=== PATIENT | male | born 1970 | race Caucasian/White ===

== ENCOUNTER 2023-10-22 07:55 | Outpatient (CLI) | payer BC, SELFPAY | END 2023-10-22 07:56 | disposition home or self-care (01) | PROVIDERS: PCP Family Medicine; Visit Provider Otolaryngology | DX: H90.3 Sensorineural hearing loss, bilateral (principal); J01.00 Acute maxillary sinusitis, unspecified | CPT/HCPCS: 92557; 92567 ==

== ENCOUNTER 2024-04-14 01:09 | Day surgery (SDC) | payer BC, SELFPAY ==
[2024-03-27 15:02] VITALS: BMI 38.0
[2024-04-14 07:42] VITALS: BP 147/102; PULSE 71; RESP 18; TEMP 36.2; O2SAT 98
[2024-04-14] MEDS: LACTATED RINGERS 1,000 ML 150 ML IV CONT (07:50)
[2024-04-14 08:06] VITALS: BP 140/91
--- NOTE | 2024-04-14 08:15 | WPDANESEPPF ---
Anes - Initial Pre Proc Eval Procedure: Operation Date: 04/14/24 09:00 Proposed Procedures p Screening Colonoscopy - Darvin Mathews MD Date/Time: 04/14/24 08:15 Surgeon: Darvin Mathews MD Pre Op Diagnosis: neoplasm screening Patient Data Age: 53 Gender: M Height: 1.83 m Weight: 128 kg Last Vital Signs Temp 97.2 F L 04/14/24 07:42 Pulse 71 04/14/24 07:42 Resp 18 04/14/24 07:42 BP 140/91 H 04/14/24 08:06 Pulse Ox 98 04/14/24 07:42 O2 Del Method Room Air 04/14/24 07:42 Allergies Allergy/AdvReac Type Severity Reaction Status Date / Time No Known Allergies Allergy Verified 04/14/24 07:41 Home Medications Medication Instructions Recorded Confirmed Type carvedilol 12.5 mg tablet See Rx Instructions .Route 12/17/23 03/27/24 Rx .COMPLEX #180 tabs hydrochlorothiazide 50 mg tablet See Rx Instructions .Route 01/28/24 03/27/24 Rx .COMPLEX #90 tabs atorvastatin 20 mg tablet See Rx Instructions .Route 03/24/24 03/27/24 Rx .COMPLEX #90 tabs multivit with minerals-iron 18 1 tablet PO DAILY 03/27/24 03/27/24 History mg-folic ac 400 mcg-vit K 25 mcg tablet (Adults Multivitamin) Patient hx anesthesia problems: none Family hx anesthesia problems: none Results Review: All pre-operative results and documents have been reviewed as part of the pre-operative evaluation. [facility] Past Medical History Medical History (Updated 01/28/24 @ 15:44 by Andrew Hubbard MD) Elevated fasting glucose Encounter for screening for malignant neoplasm of prostate Hypertension Obesity Screening for colon cancer Screening for thyroid disorder URI (upper respiratory infection) Surgical History Surgical History No history of previous surgery Family History Family History Father Heart disease Mother Hypertension Social History Social History Social History: Caffeine-coffee/tea Smoking status: Never smoker Alcohol intake: current Drinks per week: 2 Alcohol use details: BEERS Substance use: never Substance use type: does not use Lack of Transportation: No Lack of Food: Never True Current Housing: I Have Housing Concerned About Future Housing: No Difficulty Paying Gas/Electric Bills: No Difficulty Paying for Meds: No Currently Unemployed: No Education: Don't Know Difficulty w/ Childcare or Family Care: No Living arrangements: with family Occupation/Education: occupation Spiritual care concerns: No Agree to blood products: Yes Anes - Eval Final PreProcedure Day of Procedure 04/14/24 08:15 Patient weight: obese Heart: regular rate and rhythm Lungs: clear to auscultation Airway: Mallampati scale class III Neurological: alert and oriented Last oral intake: >/= 8 hours ASA classification: III Emergent: no Anesthetic plan: proceed Anesthesia type and monitoring: general GIVS and standard monitoring Results Review: All pre-operative results and documents have been reviewed as part of the pre-operative evaluation. Informed Consent: The patient's anesthetic plan and its attendant risks and benefits were discussed with the patient/family/POA. Questions were solicited and answers provided to the satisfaction of the patient/family/POA.
--- NOTE | 2024-04-14 08:18 | SUR.PREOP ---
0800: DR MENDOZA MADE AWARE OF PT'S BLOOD PRESSURES, NO NEW ORDERS, DR SEEING PT AT BEDSIDE
--- NOTE | 2024-04-14 08:45 | PM.HPGS ---
History of Present Illness History of Present Illness Consent: Risks, benefits, and alternatives have been discussed and questions answered. Patient agrees to proceed with procedure. Chief complaint: neoplasm screening Narrative: Rei Muller is a 53 year old male here for first screening colonoscopy Review of Systems Review of Systems: All systems reviewed & are unremarkable except as noted in HPI and below PMFSH Past Medical History Medical History (Updated 01/28/24 @ 15:44 by Andrew Hubbard MD) Elevated fasting glucose Encounter for screening for malignant neoplasm of prostate Hypertension Obesity Screening for colon cancer Screening for thyroid disorder URI (upper respiratory infection) Surgical History Surgical History No history of previous surgery Family History Family History Father Heart disease Mother Hypertension Social History Social History Social History: Caffeine-coffee/tea Smoking status: Never smoker Alcohol intake: current Drinks per week: 2 Alcohol use details: BEERS Substance use: never Substance use type: does not use Lack of Transportation: No Lack of Food: Never True Current Housing: I Have Housing Concerned About Future Housing: No Difficulty Paying Gas/Electric Bills: No Difficulty Paying for Meds: No Currently Unemployed: No Education: Don't Know Difficulty w/ Childcare or Family Care: No Living arrangements: with family Occupation/Education: occupation Spiritual care concerns: No Agree to blood products: Yes Meds Home Medications and Allergies Home Medications Medication Instructions Recorded Confirmed Type carvedilol 12.5 mg tablet See Rx Instructions .Route 12/17/23 03/27/24 Rx .COMPLEX #180 tabs hydrochlorothiazide 50 mg tablet See Rx Instructions .Route 01/28/24 03/27/24 Rx .COMPLEX #90 tabs atorvastatin 20 mg tablet See Rx Instructions .Route 03/24/24 03/27/24 Rx .COMPLEX #90 tabs multivit with minerals-iron 18 1 tablet PO DAILY 03/27/24 03/27/24 History mg-folic ac 400 mcg-vit K 25 mcg tablet (Adults Multivitamin) Allergies Allergy/AdvReac Type Severity Reaction Status Date / Time No Known Allergies Allergy Verified 04/14/24 07:41 Vital Signs Vital Signs - 24 hr 04/14/24 07:42 04/14/24 08:06 Temperature 97.2 F L Pulse Rate 71 Respiratory Rate 18 Blood Pressure 147/102 H 140/91 H Pulse Oximetry 98 Oxygen Delivery Room Air Exam Const: General: comfortable and no acute distress HENMT: Face/Nose/Sinus: Normal nares present Eyes: General: appearance normal, both eyes and all related structures Neck: Neck: no JVD Resp: Auscultation: clear to auscultation bilaterally Cardio: Rate: regular rate Rhythm: regular rhythm GI: Inspection: non-distended GI Palp: Yes Soft to palpation Skin: General skin exam: normal color Neuro: General: gait normal Speech: normal speech Extrem: General: normal to inspection Psych: Mental Status: mental status grossly normal Assessment and Plan Assessment and plan (1) Screening for colon cancer: Code(s): Z12.11 - Encounter for screening for malignant neoplasm of colon Status: Acute Assessment and Plan: colonoscopy
[2024-04-14 09:05] VITALS: BP 105/46; PULSE 55; RESP 19; O2SAT 98
[2024-04-14 09:15] VITALS: BP 120/88; PULSE 60; RESP 23; O2SAT 98
[2024-04-14 09:25] VITALS: BP 126/83; PULSE 58; RESP 18; O2SAT 97
== END 2024-04-14 09:34 | disposition home or self-care (01) ==
PROVIDERS: PCP Family Medicine; Visit Provider Internal Medicine Gastroenterology
PROC: 0DJD8ZZ Inspection of Lower Intestinal Tract, Via Natural or Artificial Opening Endoscopic (ICD-10-PCS; CPT 45378; principal; 2024-04-14 09:00)
DX: Z12.11 Encounter for screening for malignant neoplasm of colon (principal); D12.8 Benign neoplasm of rectum; K64.8 Other hemorrhoids; I10 Essential (primary) hypertension; E66.9 Obesity, unspecified; Z68.38 Body mass index [BMI] 38.0-38.9, adult; Z82.49 Family history of ischemic heart disease and other diseases of the circulatory system
CPT/HCPCS: 45385; 88305; J2001; J2704; J7120